=== PATIENT | female | born 1985 ===

== ENCOUNTER → 2022-03-30 | Emergency (ER) | payer OTHER ==
[~2022-03-30] VITALS: Ht 165.1 cm; Wt 85.7 kg
[~2022-03-30] MED LIST: KETO10TA2 PO; ORPHENADRINE C100 MG PO
== END | disposition home or self-care (01) ==
LOC: ER 00:49
DX: R06.02 Shortness of breath (principal); M25.512 Pain in left shoulder; M25.511 Pain in right shoulder